=== PATIENT | female | born 1970 | race Caucasian/White ===

== ENCOUNTER 2017-11-14 05:37 | Day surgery (SDC) | payer BC, OTHER ==
[2017-11-14] MEDS ORDERED: ACETAMINOPHEN 500 MG TAB PO ONE (05:50)
[2017-11-14] MEDS ORDERED: ceFAZolin 2 GM/DEXTROSE 100 ML IV ONE (05:50)
[2017-11-14] MEDS ORDERED: GABAPENTIN 300 MG CAP PO ONE (05:50)
[2017-11-14] MEDS ORDERED: LR 1,000 ML IV ONE (05:51)
[2017-11-14] MEDS ORDERED: THROMBIN (BOVINE) 5,000 UNIT VIAL TP ONE (06:26)
[2017-11-14] MEDS ORDERED: CHLORHEXIDINE GLUC HIBICLENS 118 ML BTL TP ONE (06:26)
[2017-11-14] MEDS ORDERED: SURGIFLO MATRIX KIT WITH THROMBIN 8 ML TP ONE (06:26)
[2017-11-14] MEDS ORDERED: BUPIVACAINE 0.25% 30 ML SDV ONE (06:26)
[2017-11-14] MEDS ORDERED: LIDOCAINE 1% 300 MG/30 ML SDV ONE (06:26)
[2017-11-14] MEDS ORDERED: GENTAMICIN SULFATE 80 MG/2 ML VIAL ONE ×2 (06:27→09:11)
[2017-11-14] MEDS ORDERED: EPINEPHrine 1 MG/ML INJ ONE (06:27)
--- NOTE | 2017-11-14 06:37 | PDHPUP ---
History & Physical Update H&P update statement: This history and physical update is based on an assessment of the patient which was completed after admission or registration (within 24 hours), but prior to the surgery/procedure. H&P update: H&P reviewed & patient examined, no change in patient's condition since H&P completed
[2017-11-14] MEDS ORDERED: MIDAZOLAM 2 MG/2 ML VIAL IVP ONE (07:00)
--- NOTE | 2017-11-14 07:02 | PDANEPAE ---
ANE History of Present Illness chronic lumbar radiculopathy for SCS ANE Past Medical History - Cardiovascular History Hx Hypertension: No Hx Arrhythmias: No Hx Chest Pain: No Hx Coronary Artery / Peripheral Vascular Disease: No Hx CHF / Valvular Disease: No Hx Palpitations: No - Pulmonary History Hx COPD: No Hx Asthma/Reactive Airway Disease: Yes Hx Recent Upper Respiratory Infection: No Hx Oxygen in Use at Home: Yes O2 in Use at Home (L/minute): O2 4L W/CPAP Hx Sleep Apnea: Yes Sleep Apnea Screening Result - Last Documented: Positive Pulmonary History Comment: POS LYNNE W/CPAP/ O2 4L NOC - Neurologic History Hx Cerebrovascular Accident: No Hx Seizures: No Hx Dementia: No Neurologic History Comment: MIGRAINES - Endocrine History Hx Diabetes: No Obesity: yes, severe Endocrine History Comment: HYPOTHYROID - Renal History Hx Renal Disorders: No - Liver History Hx Hepatic Disorders: No - Neurological & Psychiatric Hx Hx Neurological and Psychiatric Disorders: Yes Neurological / Psychiatric History Comment: ANXIETY/DEPRESSION - Cancer History Hx Cancer: No - Congenital Disorder History Hx Congenital Disorders: No - GI History Hx Gastrointestinal Disorders: No - Other Health History Other Health History: PT HAS PORT FOR INFUSIONS - IMMUNE DEFICIENCY DISEASE- HYPO GAMMAGLOBULINEMIA. IGG INFUSIONS EVERY 3 WEEKS - Chronic Pain History Chronic Pain: Yes (CHRONIC PAIN PT LUMBAR, HIPS, LEGS) - Surgical History Prior Surgeries: C SECTION X3. SINUS SURG X9. CERVICAL FUSION X3. PORT PLACEMENT. LUNG BX. LAPAROSCOPIES X3(ENDOMETRIOSIS). EPIDURAL INJS SPINAL ANE Review of Systems Review of systems is: negative Review of Systems: - Exercise capacity METS (RN): 3 METS ANE Patient History - Allergies Allergies/Adverse Reactions: caffeine [From Cafergot] Allergy (Verified 11/10/17 16:20) NAUSEA & VOMITING ergotamine [From Cafergot] Allergy (Verified 11/10/17 16:20) NAUSEA & VOMITING erythromycin base Allergy (Verified 11/10/17 16:20) NAUSEA & VOMITING - Home Medications Home medications: home medication list seen and reviewed Home Medications: [place] Thyroid 11/10/17 [Last Taken 11/14/17] Atorvastatin Calcium 11/10/17 [Last Taken 11/13/17] Azelastine 11/10/17 [Last Taken Unknown] Bupropion HCl 11/10/17 [Last Taken 11/13/17] Chantix 11/10/17 [Last Taken 11/14/17] Clindamycin 1% 11/10/17 [Last Taken Unknown] Dilaudid 11/10/17 [Last Taken 11/14/17] Dulera 100 Mcg/5 Mcg Inhaler 11/10/17 [Last Taken 11/14/17] Fluconazole 11/10/17 [Last Taken 11/11/17] Gabapentin 11/10/17 [Last Taken 11/14/17] Herbals/Supplements -Info Only 11/10/17 [Last Taken 11/10/17] Ipratropium/Albuterol 11/10/17 [Last Taken 11/14/17] Iron 11/10/17 [Last Taken 11/10/17] Lasix 11/10/17 [Last Taken Unknown] Melatonin 11/10/17 [Last Taken 11/13/17] Mometasone Furoate 11/10/17 [Last Taken 11/14/17] Mucinex 11/10/17 [Last Taken 11/13/17] Naproxen 11/10/17 [Last Taken 11/07/17] Norethindrone 11/10/17 [Last Taken 11/14/17] Nystatin 11/10/17 [Last Taken 10/24/17] Omeprazole 11/10/17 [Last Taken 11/14/17] Plaquenil 200 mg (*) 11/10/17 [Last Taken 11/13/17] Prednisone 11/10/17 [Last Taken 11/13/17] Promethazine HCl 11/10/17 [Last Taken 11/14/17] Ranitidine HCl 11/10/17 [Last Taken 11/13/17] Singulair 11/10/17 [Last Taken 11/13/17] Stool Softener 11/10/17 [Last Taken 11/10/17] Synthroid 11/10/17 [Last Taken 11/13/17] Tylenol 11/10/17 [Last Taken 11/13/17] Urea Cream (*) 11/10/17 [Last Taken 11/07/17] Xtampza ER 11/10/17 [Last Taken 11/14/17] Zithromax 11/10/17 [Last Taken 11/14/17] Zyrtec 11/10/17 [Last Taken 11/10/17] - NPO status NPO Since - Liquids (Date): 11/14/17 NPO Since - Liquids (Time): 04:00 NPO Since - Solids (Date): 11/13/17 NPO Since - Solids (Time): 19:00 - Smoking Hx Smoking Status: Former smoker - Family Anes Hx Family Hx Anesthesia Complications: NEG ANE Labs/Vital Signs - Labs Result Diagrams: 11/14/17 06:55 - Vital Signs Blood Pressure: 142/89 Heart Rate: 94 Respiratory Rate: 16 O2 Sat (%): 93 Height: 154.94 cm Weight: 110.223 kg ANE Physical Exam - Airway Neck exam: FROM Mallampati Score: Class 3 Mouth exam: small mouth opening - Pulmonary Pulmonary: no respiratory distress - Cardiovascular Cardiovascular: regular rate and rhythym - ASA Status ASA Status: IV ANE Anesthesia Plan Anesthesia Plan: general endotracheal anesthesia Specialized Airway: video laryngoscope
[2017-11-14] MEDS ORDERED: fentaNYL 250 MCG/5 ML INJ ONE (07:05)
[2017-11-14] MEDS ORDERED: PROPOFOL 200 MG/20 ML VIAL ONE (07:05)
[2017-11-14] MEDS ORDERED: LIDOCAINE 2% 5 ML SDV ONE (07:05)
[2017-11-14] MEDS ORDERED: KETAMINE 200 MG/20 ML VIAL ONE (07:07)
[2017-11-14] MEDS ORDERED: ROCURONIUM 100 MG/10 ML VIAL ONE (07:16)
[2017-11-14] MEDS ORDERED: DEXAMETHASONE 4 MG/ML VIAL ONE (07:17)
[2017-11-14] MEDS ORDERED: SUGAMMADEX SODIUM 200 MG/2 ML VIAL IVP ONE (07:17)
[2017-11-14] MEDS ORDERED: ONDANSETRON 4 MG/2 ML VIAL ONE (07:17)
--- NOTE | 2017-11-14 08:27 | POSTANESTH ---
Post Anesthetic Evaluation Cardiovascular Status: Normal, Stable Respiratory Status: Normal, Stable Level of Consciousness/Mental Status: Can Participate in Eval, Mildly Sleepy, Arousable Pain Control: Adequate, Prn Tx Ordered Nausea/Vomiting Control: Adequate, Prn Tx Ordered Complications Possibly Related to Anesthesia: None Noted
[2017-11-14] MEDS ORDERED: ONDANSETRON 4 MG/2 ML VIAL IVP PRN (08:40)
[2017-11-14] MEDS ORDERED: ACETAMINOPHEN 500 MG TAB PO PRN (08:40)
[2017-11-14] MEDS ORDERED: HYDROCODONE/APAP 5/325 TAB PO PRN (08:40)
[2017-11-14] MEDS ORDERED: LABETALOL HCL 5 MG/ML 20 ML MDV IVP PRN (08:40)
[2017-11-14] MEDS ORDERED: PROMETHAZINE HCL 25 MG/ML INJ IVP PRN (08:40)
[2017-11-14] MEDS ORDERED: NALOXONE HCL 0.4 MG/ML INJ IVP PRN (08:40)
[2017-11-14] MEDS ORDERED: ALBUTEROL 3 ML DEYVIAL IH PRN (08:40)
[2017-11-14] MEDS ORDERED: LR 500 ML IV PRN (08:40)
--- NOTE | 2017-11-14 09:50 | NEUSURGPN ---
Date of Surgery: 11/14/17 Post Op Day: 0 Assessment/Plan: s/p laminectomy for SCS paddle lead and generator 1)pain control 2)dc wgen SDS criteria met 3)remove dressings day 3 4)may shower day 3 5)Fu 2 weeks for sutures 6)Call for change in neuro status Subjective: Doing well, pain controlled Objective: lethargic but following commands equally x 4 with poor effort Urinary Catheter in Place: No - Physician Patient Seen by : [facility] Physical Exam - Vitals, I&O, Labs I and O 11/13/17 11/14/17 11/15/17 05:59 05:59 05:59 Weight 110.223 kg Vital Signs Temp Pulse Resp BP Pulse Ox 36.7 C 94 16 142/89 H 93 11/14/17 06:19 11/14/17 07:02 11/14/17 07:02 11/14/17 07:02 11/14/17 07:02 Laboratory Results 11/14/17 06:55 ICD10 Worksheet Patient Problems: Problems Problem Status Onset Chronic pain Acute Chronic pain Acute - ICD10 Problem Qualifiers (1) Chronic pain (2) Chronic pain
[2017-11-14] MEDS ORDERED: DIAZEPAM 5 MG/ML 1 ML SYR ONE ×2 (09:59→11:09)
[2017-11-14] MEDS ORDERED: HYDROmorphONE/DILAUDID 1 MG/ML INJ ONE ×2 (09:59→10:51)
[2017-11-14] MEDS ORDERED: fentaNYL 100 MCG/2 ML INJ ONE ×2 (09:59→10:51)
[2017-11-14] MEDS: DIAZEPAM 5 MG/ML 1 ML SYR IVP PRN ×4 (10:02→11:29)
[2017-11-14] MEDS: fentaNYL 100 MCG/2 ML INJ IVP PRN ×4 (10:03→11:24)
--- NOTE | 2017-11-14 10:08 | GOP ---
[f rep st] OPERATIVE REPORT DATE OF OPERATION: 11/14/2017 SURGEON: Mer Oliver DO NEUROSURGEON: Mer Oliver DO. AUTOMATION/CONTROLS MANAGER: None. PREOPERATIVE DIAGNOSIS: Chronic pain syndrome. POSTOPERATIVE DIAGNOSIS: Chronic pain syndrome. PROCEDURE PERFORMED: Thoracic laminectomy, T9-10, T10-11, T11-12 for placement of Nevro spinal cord stimulator paddle lead and generator to right hip. FINDINGS: SPECIMENS: None. ESTIMATED BLOOD LOSS: 100 mL. INDICATIONS: This is a 47-year-old female with chronic pain syndrome who was offered surgical interv ention. She declined this. She had a Nevro percutaneous trial with significant relief of her pain a nd elected to move forward with a Nevro paddle lead. DESCRIPTION OF PROCEDURE: She was identified and consented. Sites were marked. Brought to the oper ating room, anesthetized under general trach tube anesthesia, rolled onto the OR bed with a Ignacio fr hema. All pressure points were appropriately padded. Incision sites were marked counting up from the sacrum. She previously marked her belt line and decided for a right-sided generator placement. She was prepped and draped in the usual sterile fashion. Incision was anesthetized with 0.5% Marcaine w ith epinephrine. Incision at the thoracic spine was made with a 10 blade. Hemostasis was obtained w ith Bovie and bipolar cautery, dissecting down onto the laminae of T11-[address] a T9-10 Nevro lead . We took an x-ray and verified were in the appropriate position, used a Leksell and removed the spi nous process, interspinous ligament, then used a high-speed drill to create a laminotomy, opened the dura with a ball-tip probe and extended it with 2 and 3 Kerrisons. We then attempted to slide the Ne vro paddle in; however, there was a tremendous amount of scar. We had to extend the incision, dissec ting down onto laminae of T9-10 and T10-11 and removed the spinous processes in this region. I attem pted a T10-11 laminectomy, created the laminectomy, attempted to side the lead. The lead continued t o move to the left and so performed full laminectomy at T9 and T10 and was able to place the lead in midline position at T9-10 and took an x-ray and verified it was in the appropriate position. We used [place] cranial fixation plates and 4 mm screws to recreate the lamina and also then to anchor the l ead. Copiously irrigated with over a liter of gentamicin-infused saline. Meticulous hemostasis was obtained with FloSeal. We then closed the fascia with 0 Vicryl pop-offs. We created a subcutaneous pocket with Metzenbaum scissors. We opened the generator pocket with a 10 blade, and with blunt diss ection, created a generator pocket, tunneled from the pocket up to the leads, brought the leads down and out, leaving a strain relief loop of the thoracic spine connected to leads. Checked the impedanc es. All impedances were good. Locked the leads into place and rechecked the impedances. All impeda nces were good. Sutured the generator to the fascia with 2-0 silk stitch at 2 positions. Copiously irrigated each incision with over a liter of gentamicin-infused saline. Closed each incision, subcut aneous layer with 0 Vicryl pop offs, cutaneous layer of 0 Vicryl pop-offs. Skin was closed with 3-0 running nylon at both positions, dressed with Xeroform, gauze and Tegaderm. Patient tolerated the pr ocedure well. No complications. FLUIDS REPLACED: 800 mL crystalloid. URINE OUTPUT: None. DRAINS: None. COMPLICATIONS: The patient had a copious amount of scar tissue secondary to her trial requiring exte nsion of laminectomy which is not really a complication but a finding. /[id number]/MODL
[2017-11-14] MEDS: HYDROmorphONE/DILAUDID 1 MG/ML INJ IVP PRN ×6 (10:25→11:23)
[2017-11-14] MEDS ORDERED: oxyCODONE IR 5 MG TAB ONE ×2 (10:51→12:17)
[2017-11-14] MEDS: oxyCODONE IR 5 MG TAB PO PRN ×2 (10:57→12:19)
[2017-11-14 13:14] VITALS: BP 118/79
== END 2017-11-14 13:10 | disposition home or self-care (01) ==
LOC: FSGY 05:37
PROVIDERS: ATTEND Neurological Surgery
PROC: 00HV0MZ Insertion of Neurostimulator Lead into Spinal Cord, Open Approach (ICD-10-PCS; principal; 2017-11-14 07:15)
DX: M54.16 Radiculopathy, lumbar region (principal); G47.33 Obstructive sleep apnea (adult) (pediatric); G43.909 Migraine, unspecified, not intractable, without status migrainosus; E03.9 Hypothyroidism, unspecified; D80.1 Nonfamilial hypogammaglobulinemia; F41.8 Other specified anxiety disorders
CPT/HCPCS: 63655; 76001; C1822; C1713; C1778; J0171; J0690; J1100; J1170; J1580; J1642; J2250; J2405; J2704; J3010; J3360